=== PATIENT | male | born 1980 | race Two or more races ===

== ENCOUNTER 2019-02-16 21:27 | Emergency (ER) | payer OTHER ==
[~2019-02-16] VITALS: Ht 162.6 cm; Wt 70.3 kg
[~2019-02-16 21:27] MED LIST: IBUPROFEN600 M1 PO; SOMA250 MG PO; XANAX0.5 MG ORAL
[2019-02-16 21:30] VITALS: BP 134/97
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
[2019-02-16] MEDS ORDERED: METHOCARBAMOL750 MG ORAL (21:45)
[2019-02-16] MEDS ORDERED: QUETIAPINE FUMA50 MG ORAL (21:45)
[2019-02-16] MEDS ORDERED: PROPRANOLOL HCL40 MG ORAL (21:45)
[2019-02-16] MEDS ORDERED: Ketorolac 60mg Inj IM ONE (21:45)
[2019-02-16] MEDS ORDERED: PAROXETINE HCL20 MG PO (21:45)
[2019-02-16] MEDS ORDERED: IBUPROFEN600 MG ORAL (22:06)
[2019-02-16 22:10] VITALS: BP 134/97
--- NOTE | 2019-02-16 22:10 | NUR ---
ER DISCHARGE NOTE: Patient is cleared to be discharged per ERMD, pt is aox4, on room air, with stable vital signs. pt was given dc and prescription instructions, pt was able to verbalize understanding, pt id band removed. pt is able to ambulate with steady gait. pt took all belongings.
--- NOTE | 2019-02-16 22:11 | Diagnostic Imaging Report ---
EXAM: XR Right Femur, 2 Views CLINICAL HISTORY: PAIN TECHNIQUE: Frontal and lateral views of the right femur. COMPARISON: No relevant prior studies available. FINDINGS: Bones joints: Unremarkable. No acute fracture. No dislocation. Soft tissues: Unremarkable. IMPRESSION: No definite plain film evidence for acute fracture or dislocation. If there is continued clinical concern for fracture, consider CT or MRI for further evaluation.
== END 2019-02-16 22:10 | disposition home or self-care (01) ==
LOC: EMR 21:39
DX: M79.651 Pain in right thigh (principal); Z88.6 Allergy status to analgesic agent; I10 Essential (primary) hypertension
CPT/HCPCS: 96372; 99283

== ENCOUNTER 2019-03-13 22:35 | Emergency (ER) | payer OTHER ==
[~2019-03-13] VITALS: Ht 162.6 cm; Wt 70.3 kg
[~2019-03-13 22:35] MED LIST changes: +IBUPROFEN600 MG ORAL; +METHOCARBAMOL750 MG ORAL; +PAROXETINE HCL20 MG PO; +PROPRANOLOL HCL40 MG ORAL; +QUETIAPINE FUMA50 MG ORAL
[2019-03-13 23:05] VITALS: BP 135/83
--- NOTE | 2019-03-13 23:05 | NUR ---
ED Nurse Note: Patient walked in to ER due to chest pain, HR 143, throwing up blood. Patient stated he was at dinner and felt sudden onset of chest pain. He has medical history of SVT, GI bleed, Depression, PTSD. As per patient, he had 2 episodes of dark blood emesis today. Alert and oriented, verbally responsive. No SOB. Breathing even and unlabored. Afebrile. VSS.
[2019-03-13] MEDS ORDERED: Pantoprazole Inj IVP ONE (23:15)
[2019-03-13] MEDS ORDERED: Omnipaue 350mg/ml 100ml vial INJ PRN (23:30)
--- NOTE | 2019-03-13 23:32 | Emergency Room Report ---
History of Present Illness General Chief Complaint: Chest Pain Source: Patient Present Illness HPI Disclaimer: Please note that this report is being documented using [employer] technology. This can lead to erroneous entry secondary to incorrect interpretation by the dictating instrument. HPI: 39-year-old male with history of alcohol abuse and SVT presents for evaluation of abdominal pain and hematemesis. Patient states he has had GI bleeds in the past and esophageal varices but no endoscopic procedures of yet. He is scheduled for an outpatient endoscopy. Today he was complaining that he had sudden onset chest pain and proximal me 2 hours prior to arrival and 2 episodes of gross hematemesis. He denies any lower GI bleeding. Denies dysuria hematuria. He has pain across his entire torso and his back. Particularly, he has pain in his epigastrium radiating to the back. Denies loss of consciousness. He is required blood transfusions for bleeding esophageal varices in the past. No history of GA. Not taking anticoagulants. Denies any recent drinking. PMH: SVT, alcohol abuse with esophageal varices and prior GI bleeds PSH: See Chart Allergies: Tylenol-hydrocodone Social Hx: Current smoker, former alcohol abuse Allergies: Coded Allergies: ACETAMINOPHEN (Verified Allergy, Unknown, Rash, 02/16/19) HYDROCODONE (Verified Allergy, Unknown, Rash, 02/16/19) Nursing Documentation-PMH Hx Cardiac Problems: Yes - svt Hx Hypertension: Yes Hx Cancer: No Hx Gastrointestinal Problems: Yes - gi bleed History Of Psychiatric Problem: Yes - depression, ptsd Hx Neurological Problems: No Review of Systems All Other Systems: negative except mentioned in HPI Physical Exam Vital Signs Date Time Temp Pulse Resp B/P (MAP) Pulse Ox O2 Delivery O2 Flow Rate FiO2 03/13/19 22:58 98.2 144 20 135/83 (100) 96 Room Air General: Awake and alert, appears uncomfortable, diaphoretic HEENT: NC/AT. EOMI. dry mucous membranes Neck: Supple, trachea midline Chest Wall: Tender to palpation, no deformity, no crepitus Cardiovascular: Tachycardic. S1 and S2 normal. No murmur appreciated Resp: Mild tachypnea. Normal work of breathing. No cough, no wheezing Abdomen: Abdomen is soft, nondistended. Diffusely tender palpation particularly in the epigastrium. Skin: Intact. No abrasions, laceration MSK: Normal tone and bulk. Moving all extremities. No obvious deformity. Neuro: Awake and alert. Mentating appropriately. Medical Decision Making Diagnostic Impression: Primary Impression: Chest pain Additional Impressions: Hematemesis Pancreatitis ER Course Is a 39-year-old male presenting for evaluation of abdominal pain, chest pain and hematemesis. Differential includes was not limited to aortic dissection, esophageal varices rupture, upper GI bleed, pancreatitis, cholecystitis, GERD, esophageal rupture, esophagitis. We will treat with IV fluids, prepare for blood transfusion if needed, Protonix and broad metabolic and infectious work- up. Will obtain a CT scan of the torso with IV contrast to evaluate for dissection. Patient will require admission. Laboratory Tests Test 03/13/19 23:32 White Blood Count 7.1 K/UL (4.8-10.8) Red Blood Count 5.49 M/UL (4.70-6.10) Hemoglobin 14.1 G/DL (14.2-18.0) L Hematocrit 43.1 % (42.0-52.0) Mean Corpuscular Volume 79 FL (80-99) L Mean Corpuscular Hemoglobin 25.8 PG (27.0-31.0) L Mean Corpuscular Hemoglobin Concent 32.8 G/DL (32.0-36.0) Red Cell Distribution Width 13.9 % (11.6-14.8) Platelet Count 267 K/UL (150-450) Mean Platelet Volume 6.6 FL (6.5-10.1) Neutrophils (%) (Auto) 57.4 % (45.0-75.0) Lymphocytes (%) (Auto) 27.9 % (20.0-45.0) Monocytes (%) (Auto) 8.4 % (1.0-10.0) Eosinophils (%) (Auto) 5.2 % (0.0-3.0) H Basophils (%) (Auto) 1.0 % (0.0-2.0) Prothrombin Time 10.4 SEC (9.30-11.50) Prothrombin Time INR 1.0 (0.9-1.1) PTT 28 SEC (23-33) Sodium Level 141 MMOL/L (136-145) Potassium Level 3.7 MMOL/L (3.5-5.1) Chloride Level 106 MMOL/L (98-107) Carbon Dioxide Level 24 MMOL/L (21-32) Anion Gap 11 mmol/L (5-15) Blood Urea Nitrogen 21 mg/dL (7-18) H Creatinine 0.9 MG/DL (0.55-1.30) Estimate Glomerular Filtration Rate > 60 mL/min (>60) Glucose Level 97 MG/DL (74-106) Calcium Level 8.7 MG/DL (8.5-10.1) Total Bilirubin 0.3 MG/DL (0.2-1.0) Aspartate Amino Transferase (AST) 25 U/L (15-37) Alanine Aminotransferase (ALT) 63 U/L (12-78) Alkaline Phosphatase 89 U/L (46-116) Total Creatine Kinase 110 U/L (26-308) Creatine Kinase MB 1.1 NG/ML (0.0-3.6) Creatine Kinase MB Relative Index 1.0 Troponin I 0.000 ng/mL (0.000-0.056) Pro-B-Type Natriuretic Peptide 19 pg/mL (0-125) Total Protein 7.4 G/DL (6.4-8.2) Albumin 3.9 G/DL (3.4-5.0) Globulin 3.5 g/dL Albumin/Globulin Ratio 1.1 (1.0-2.7) Lipase 517 U/L (73-393) H EKG Diagnostic Results EKG Time: 23:15 Rate: tachycardiac ST Segments: no acute changes Other Impression Tachycardic, normal axis, normal intervals, no ST segment changes. Rhythm Strip Diag. Results Rhythm Strip Time: 23:15 EP Interpretation: yes Rate: 130s Rhythm: NSR, no PVC's, no ectopy Chest X-Ray Diagnostic Results Chest X-Ray Diagnostic Results : Chest X-Ray Ordered: Yes Indication: Chest Pain EP Interpretation: Yes Interpretation: no consolidation, no effusion, no pneumothorax, no acute cardiopulmonary disease, other - Normal cardiac silhouette, no free air appreciated Impression: No acute disease Electronically Signed by: Electronically signed by Dr. Zachariah Giles CT/MRI/US Diagnostic Results CT/MRI/US Diagnostic Results : Impression Preliminary Findings Only See Final Report For Complete Findings CT ABDOMEN With Contrast: No acute abnormality. Status post cholecystectomy. No CT evidence for obstructive uropathy. Small hiatal hernia. Normal appendix visualized Nonspecific bowel gas pattern with mild to moderate retained stool. Small periumbilical hernia containing fat. Radiologist: Hanh Ruiz M.D. Study ready at 04:03 and initial results transmitted at 05:05 Numbers: [id number], [id number] Preliminary Findings Only See Final Report For Complete Findings CTA CHEST With Contrast: Negative for pulmonary embolism. No evidence for aortic dissection. No pericardial or pleural effusion. No lymphadenopathy. Bibasilar atelectasis. Status post cholecystectomy. Small hiatal hernia. Radiologist: Hanh Ruiz M.D. Study ready at 02:06 and initial results transmitted at 02:19 Reevaluation Time: 02:34 Last Vital Signs Date Time Temp Pulse Resp B/P (MAP) Pulse Ox O2 Delivery O2 Flow Rate FiO2 03/13/19 22:58 98.2 144 20 135/83 (100) 96 Room Air Reevaluation Impression Lab work shows an elevated lipase consistent with pancreatitis but otherwise largely within normal limits. CT scan does not show any evidence of necrotizing pancreatitis or significant peripancreatic fat stranding. No evidence of aortic dissection, abdominal aortic aneurysm, thoracic aortic aneurysm or other pathology. Patient's symptoms are now resolved. He has had no emesis while in the emergency department, no evidence of anemia and he is not actively bleeding. Will be treated with simple pancreatitis and is received IV fluids and pain medication. He will be discharged with Zofran and outpatient follow-up. We discussed reasons to return to the emergency department. He understands and agrees with this treatment plan. Disposition: HOME, SELF-CARE Condition: Improved Scripts Ondansetron Odt* (ZOFRAN ODT*) 4 Mg Tab.rapdis 4 MG BC EVERY 6 HOURS PRN for Nausea & Vomiting, #20 TAB 0 Refills Prov: Zachariah Giles MD 03/14/19 Referrals: NOT CHOSEN [facility]/,REFERRING (PCP) Zachariah Giles MD Mar 13, 2019 23:32
[2019-03-14 00:03] LABS: EOSINOPHILS % (AUTO) 5.2 % (0.0-3.0); HEMATOCRIT 43.1 % (42.0-52.0); HEMOGLOBIN 14.1 G/DL (14.2-18.0); LYMPHOCYTES % (AUTO) 27.9 % (20.0-45.0); MEAN CORPUSCULAR VOLUME 79 FL (80-99); MONOCYTES % (AUTO) 8.4 % (1.0-10.0); NEUTROPHILS % (AUTO) 57.4 % (45.0-75.0); PLATELET COUNT 267 K/UL (150-450); RED BLOOD COUNT 5.49 M/UL (4.70-6.10); RED CELL DISTRIBUTION WIDTH 13.9 % (11.6-14.8); WHITE BLOOD COUNT 7.1 K/UL (4.8-10.8)
[2019-03-14 00:21] VITALS: BP 98/70
[2019-03-14 00:21] LABS: ANION GAP 11 mmol/L (5-15); BLOOD UREA NITROGEN 21 mg/dL (7-18); CALCIUM 8.7 MG/DL (8.5-10.1); CARBON DIOXIDE 24 MMOL/L (21-32); CHLORIDE 106 MMOL/L (98-107); CREATININE 0.9 MG/DL (0.55-1.30); POTASSIUM 3.7 MMOL/L (3.5-5.1); SODIUM 141 MMOL/L (136-145)
[2019-03-14 00:38] LABS: ALANINE AMINOTRANSFERASE 63 U/L (12-78); ALBUMIN 3.9 G/DL (3.4-5.0); ALBUMIN/GLOBULIN RATIO 1.1 (1.0-2.7); ALKALINE PHOSPHATASE 89 U/L (46-116); ASPARTATE AMINO TRANSFERASE 25 U/L (15-37); BILIRUBIN,TOTAL 0.3 MG/DL (0.2-1.0); CKMB 1.1 NG/ML (0.0-3.6); CREATINE KINASE 110 U/L (26-308)
--- NOTE | 2019-03-14 01:25 | NUR ---
ED Nurse Note: Pt taken for CT.
--- NOTE | 2019-03-14 01:48 | NUR ---
ED Nurse Note: Came back from CT.
--- NOTE | 2019-03-14 02:19 | Diagnostic Imaging Report ---
ndication: Chest pain, history of hematemesis Technique: IV administration nonionic contrast. Spiral acquisitions obtained from the lung bases to the lung apices. Multiplanar and 3-D reconstructions were generated. Total dose length product 697 mGycm. CTDIvol(s) 17 mGy. Dose reduction achieved using automated exposure control Comparison: none Findings: Pulmonary arteries and aorta are well-opacified. No intraluminal filling defects or other findings to suggest acute pulmonary embolus are demonstrated. No evidence of thoracic aortic aneurysm or dissection. Normal sized pulmonary arteries. Normal right ventricular chamber size. There is common origin of the right brachiocephalic and left common carotid artery, otherwise normal branching anatomy and caliber of the great neck vessels. Subpleural opacities in the right lower lobe likely reflect dependent atelectatic changes. Minimal linear atelectasis and/or scarring is seen at the left lung base and left infrahilar region. The lungs are otherwise clear. No infiltrates, effusions, masses, or nodules are demonstrated. Normal heart size. No mediastinal or hilar mass or adenopathy. No pericardial effusion. No axillary or chest wall mass or adenopathy. Included upper abdominal anatomy is unremarkable except for evidence of prior cholecystectomy Impression: Essentially unremarkable exam. Negative for evidence of thoracic aortic aneurysm or dissection or pulmonary embolus Minimal pulmonary atelectatic changes Prior cholecystectomy This agrees with the preliminary interpretation provided overnight by [employer] teleradiology service. The CT scanner at [facility] is accredited by the [employer] and the scans are performed using protocols designed to limit radiation exposure to as low as reasonably achievable to attain images of sufficient resolution adequate for diagnostic evaluation.
[2019-03-14 02:48] VITALS: BP 103/60
[2019-03-14] MEDS ORDERED: Omnipaque-300 100ml vial INJ PRN (03:30)
[2019-03-14] MEDS ORDERED: ONDANSETRON ODT4 MG BC (04:25)
--- NOTE | 2019-03-14 05:06 | Diagnostic Imaging Report ---
Clinical Indication: Abdominal pain Technique: No oral contrast utilized, per emergency room physician request IV administration nonionic contrast. Multiphasic spiral acquisitions obtained through the abdomen. Multiplanar reconstructions were generated. Total dose length product 542 mGycm. CTDIvol(s) 15 mGy. Dose reduction achieved using automated exposure control Comparison: none Findings: Exam is limited as the top of the liver is not included in the imaging volume. The visualized portions of the liver are unremarkable. The gallbladder is surgically absent. No biliary ductal dilatation noted. The pancreas, spleen, adrenals, kidneys are unremarkable. Contrast is seen within the bilateral renal collecting systems and proximal ureters. The top of the bladder, which is distended and contrast-filled, is also visualized. No retroperitoneal or mesenteric lymphadenopathy demonstrated. There is a small fat-containing umbilical hernia incidentally noted. There is a small hiatal hernia The appendix is visualized, is unremarkable. The remainder the visualized bowel is unremarkable. The distal esophagus, stomach, duodenum are unremarkable. Impression: Incomplete exam due to incomplete inclusion of the upper liver No acute abnormality Prior cholecystectomy Incidental finding of small fat-containing abdominal hernia, small hiatal hernia This agrees with the preliminary interpretation provided overnight by [employer] telerad[facility] service. The CT scanner at [facility] is accredited by the [employer] and the scans are performed using protocols designed to limit radiation exposure to as low as reasonably achievable to attain images of sufficient resolution adequate for diagnostic evaluation.
[2019-03-14 05:10] VITALS: BP 110/78
--- NOTE | 2019-03-14 05:10 | NUR ---
ED Nurse Note: Pt cleared by ERMD for discharge. DC instructions/prescription was given and explained to pt and verbalized understanding of teachings. All medical deviecs such as ID band and Iv line removed. Pt is AAO x4, ambulatory and left with all personal belongings. Accompanied by a friend.
--- NOTE | 2019-03-14 15:05 | Diagnostic Imaging Report ---
Indication: Chest pain Technique: One view of the chest Comparison: none Findings: Lungs and pleural spaces are clear. Heart size is upper limits of normal. Impression: No acute process
[2019-03-14] MEDS ORDERED: CARISOPRODOL350 MG ORAL (20:16)
[2019-03-14] MEDS ORDERED: ALPRAZOLAM0.5 MG PO (20:16)
--- NOTE | 2019-03-17 00:19 | Cardiology Report ---
APPROVED REPORT EKG Measurement Heart [id number] Sinus tachycardia Otherwise normal ECG
== END 2019-03-14 05:10 | disposition home or self-care (01) ==
LOC: EMR 23:15
DX: K85.90 Acute pancreatitis without necrosis or infection, unspecified (principal); K92.0 Hematemesis; R07.9 Chest pain, unspecified; I10 Essential (primary) hypertension; F32.9 Major depressive disorder, single episode, unspecified; F43.10 Post-traumatic stress disorder, unspecified; Z88.6 Allergy status to analgesic agent; F17.200 Nicotine dependence, unspecified, uncomplicated; Z90.49 Acquired absence of other specified parts of digestive tract
CPT/HCPCS: 36415; 71045; 71275; 74160; 80053; 82550; 82553; 83690; 83880; 84484; 85025; 85610; 85730; 86850; 86900; 86901; 93005; 96361; 96374; 99284; C9113; Q9967; J7030

== ENCOUNTER 2019-03-14 13:54 | Inpatient (IN) | payer OTHER ==
[~2019-03-14] VITALS: Ht 162.6 cm; Wt 76.7 kg
[~2019-03-14 13:54] MED LIST changes: +ONDANSETRON ODT4 MG BC
[2019-03-14 14:30] VITALS: BP 136/90
[2019-03-14] MEDS ORDERED: Morphine Sulfate 10mg/ml Inj IVP ONE (14:30)
[2019-03-14] MEDS ORDERED: Ketorolac 30mg Inj IV ONE (14:30)
--- NOTE | 2019-03-14 14:30 | NUR ---
Patient was in ED yesterday for pancreatitis, returned today since he was advised to return if symptoms worsens. Patient complaining of 10/10 abdominal pain. Has not eaten since yesterday morning and last time he had fluids was this morning. He is unable to eat or drink without vomiting. Per pt, he vomited a medium amount blood earlier today. Patient visually distressed, guarding abdomen and grimacing. BP 136/90, Temp 98.2, O2 99%, RR 17.
--- NOTE | 2019-03-14 14:35 | Emergency Room Report ---
History of Present Illness General Chief Complaint: Abdominal Pain Source: Patient Present Illness HPI This patient has a history of recurrent pancreatitis. He states that he develops intermittent episodes. He states that he has not drank alcohol in 4 months. He is in a rehab program. He was seen last night here at [facility] emergency department and diagnosed with pancreatitis. He states that his symptoms have worsened and he continues to have hematemesis. He does have a history of a GI bleed that he states was related to gastritis. The medical record states history of esophageal varices, however, when I inquired into this from with the patient he denies that he does have this. He is scheduled for an upper endoscopy. He denies recent illness. He has a history of cholecystectomy. He denies any new symptoms. He has no other complaints. Allergies: Coded Allergies: ACETAMINOPHEN (Verified Allergy, Unknown, Rash, 02/16/19) HYDROCODONE (Verified Allergy, Unknown, Rash, 02/16/19) Patient History Past Medical History: see triage record, HTN, GERD, GI bleed, other - SVT, recurrent pancreatitis Social History: Denies: smoking, alcohol use, drug use Reviewed Nursing Documentation: PMH: Agreed; PSxH: Agreed Nursing Documentation-PMH Past Medical History: No History, Except For Hx Cardiac Problems: Yes - svt Hx Hypertension: Yes Hx Cancer: No Hx Gastrointestinal Problems: Yes - gi bleed Hx Neurological Problems: No Review of Systems All Other Systems: negative except mentioned in HPI Physical Exam Vital Signs Date Time Temp Pulse Resp B/P (MAP) Pulse Ox O2 Delivery O2 Flow Rate FiO2 03/14/19 14:08 98.1 111 18 129/77 (94) 95 Room Air Sp02 EP Interpretation: reviewed, normal General Appearance: no apparent distress, alert, GCS 15, non-toxic Head: normocephalic, atraumatic Eyes: bilateral eye normal inspection, bilateral eye PERRL ENT: hearing grossly normal, normal pharynx, no angioedema, normal voice Neck: full range of motion, supple/symm/no masses Respiratory: chest non-tender, lungs clear, normal breath sounds, no respiratory distress, no retraction, no accessory muscle use, speaking full sentences Cardiovascular #1: regular rate, rhythm, no edema Gastrointestinal: soft, non-distended, no guarding, no rebound, tenderness - TTP in the epigastrium Rectal: deferred Musculoskeletal: back normal, gait/station normal, normal range of motion, non- tender Neurologic: alert, oriented x3, responsive, motor strength/tone normal, sensory intact, speech normal Psychiatric: judgement/insight normal, memory normal, mood/affect normal, no suicidal/homicidal ideation Skin: no rash, normal color Medical Decision Making Diagnostic Impression: Primary Impression: Pancreatitis ER Course This patient is found to have pancreatitis. Patient's lipase is the same as yesterday. He states he is unable to tolerate the pain anything orally. Therefore, the patient will be admitted for bowel rest and pain control. He remained stable during his ED course. He is admitted to the medical surgical floor. Laboratory Tests Test 03/14/19 14:50 White Blood Count 5.4 K/UL (4.8-10.8) Red Blood Count 5.25 M/UL (4.70-6.10) Hemoglobin 13.9 G/DL (14.2-18.0) L Hematocrit 41.4 % (42.0-52.0) L Mean Corpuscular Volume 79 FL (80-99) L Mean Corpuscular Hemoglobin 26.5 PG (27.0-31.0) L Mean Corpuscular Hemoglobin Concent 33.6 G/DL (32.0-36.0) Red Cell Distribution Width 13.6 % (11.6-14.8) Platelet Count 254 K/UL (150-450) Mean Platelet Volume 7.2 FL (6.5-10.1) Neutrophils (%) (Auto) 60.7 % (45.0-75.0) Lymphocytes (%) (Auto) 23.6 % (20.0-45.0) Monocytes (%) (Auto) 7.7 % (1.0-10.0) Eosinophils (%) (Auto) 7.0 % (0.0-3.0) H Basophils (%) (Auto) 1.0 % (0.0-2.0) Urine Color Pale yellow Urine Appearance Clear Urine pH 5 (4.5-8.0) Urine Specific [place] 1.010 (1.005-1.035) Urine Protein Negative (NEGATIVE) Urine Glucose (UA) Negative (NEGATIVE) Urine Ketones Negative (NEGATIVE) Urine Blood Negative (NEGATIVE) Urine Nitrite Negative (NEGATIVE) Urine Bilirubin Negative (NEGATIVE) Urine Urobilinogen Normal MG/DL (0.0-1.0) Urine Leukocyte Esterase Negative (NEGATIVE) Sodium Level 141 MMOL/L (136-145) Potassium Level 3.7 MMOL/L (3.5-5.1) Chloride Level 108 MMOL/L (98-107) H Carbon Dioxide Level 22 MMOL/L (21-32) Anion Gap 11 mmol/L (5-15) Blood Urea Nitrogen 11 mg/dL (7-18) Creatinine 0.7 MG/DL (0.55-1.30) Estimate Glomerular Filtration Rate > 60 mL/min (>60) Glucose Level 108 MG/DL (74-106) H Calcium Level 8.4 MG/DL (8.5-10.1) L Total Bilirubin 0.3 MG/DL (0.2-1.0) Aspartate Amino Transferase (AST) 20 U/L (15-37) Alanine Aminotransferase (ALT) 59 U/L (12-78) Alkaline Phosphatase 97 U/L (46-116) Total Protein 7.1 G/DL (6.4-8.2) Albumin 3.8 G/DL (3.4-5.0) Globulin 3.3 g/dL Albumin/Globulin Ratio 1.2 (1.0-2.7) Lipase 532 U/L (73-393) H Urine Opiates Screen Negative (NEGATIVE) Urine Barbiturates Screen Negative (NEGATIVE) Phencyclidine (PCP) Screen Negative (NEGATIVE) Urine Amphetamines Screen Negative (NEGATIVE) Urine Benzodiazepines Screen Negative (NEGATIVE) Urine Cocaine Screen Negative (NEGATIVE) Urine Marijuana (THC) Screen Negative (NEGATIVE) Serum Alcohol < 3 mg/dL Last Vital Signs Date Time Temp Pulse Resp B/P (MAP) Pulse Ox O2 Delivery O2 Flow Rate FiO2 03/14/19 14:08 98.1 111 18 129/77 (94) 95 Room Air Status: improved Disposition: ADMITTED INPATIENT Condition: Stable Martha Schwarz DO Mar 14, 2019 14:35
[2019-03-14 15:12] LABS: HEMATOCRIT 41.4 % (42.0-52.0); HEMOGLOBIN 13.9 G/DL (14.2-18.0); LYMPHOCYTES % (AUTO) 23.6 % (20.0-45.0); MEAN CORPUSCULAR VOLUME 79 FL (80-99); MONOCYTES % (AUTO) 7.7 % (1.0-10.0); NEUTROPHILS % (AUTO) 60.7 % (45.0-75.0); PLATELET COUNT 254 K/UL (150-450); RED BLOOD COUNT 5.25 M/UL (4.70-6.10); RED CELL DISTRIBUTION WIDTH 13.6 % (11.6-14.8); WHITE BLOOD COUNT 5.4 K/UL (4.8-10.8)
[2019-03-14 15:13] LABS: APPEARANCE,URINE CLEAR; BILIRUBIN, URINE NEGATIVE (NEGATIVE); COLOR,URINE PALE YELLOW; GLUCOSE, URINE (UA) NEGATIVE (NEGATIVE); KETONES,URINE NEGATIVE (NEGATIVE); LEUKOCYTE ESTERASE ,URINE NEGATIVE (NEGATIVE); NITRITE,URINE NEGATIVE (NEGATIVE); PH,URINE 5 (4.5-8.0); PROTEIN,URINE NEGATIVE (NEGATIVE); UROBILINOGEN,URINE NORMAL MG/DL (0.0-1.0)
[2019-03-14 15:38] LABS: ANION GAP 11 mmol/L (5-15); BLOOD UREA NITROGEN 11 mg/dL (7-18); CALCIUM 8.4 MG/DL (8.5-10.1); CARBON DIOXIDE 22 MMOL/L (21-32); CHLORIDE 108 MMOL/L (98-107); CREATININE 0.7 MG/DL (0.55-1.30); POTASSIUM 3.7 MMOL/L (3.5-5.1); SODIUM 141 MMOL/L (136-145)
[2019-03-14 15:41] LABS: ALANINE AMINOTRANSFERASE 59 U/L (12-78); ALBUMIN 3.8 G/DL (3.4-5.0); ALBUMIN/GLOBULIN RATIO 1.2 (1.0-2.7); ALKALINE PHOSPHATASE 97 U/L (46-116); ASPARTATE AMINO TRANSFERASE 20 U/L (15-37); BILIRUBIN,TOTAL 0.3 MG/DL (0.2-1.0)
--- NOTE | 2019-03-14 16:29 | NUR ---
ED Nurse Note: Per MD, patient ok to have clear liquids to see if he tolerates.
--- NOTE | 2019-03-14 17:00 | NUR ---
ED Nurse Note: pt attempting po clear liquids in small amounts. states no increased pain or nausea with small amt
[2019-03-14] MEDS ORDERED: HYDROmorphone 1mg/ml Carpuject IVP ONE (17:30)
[2019-03-14 18:50] VITALS: BP 125/84
--- NOTE | 2019-03-14 18:50 | NUR ---
ED Nurse Note: Patient stable in bed. Pain is 7/10 after receiving dilaudid IV.
--- NOTE | 2019-03-14 19:08 | NUR ---
HAND-OFF: Report given to Isaac MEYERS.
[2019-03-14] MEDS ORDERED: Miralax 17gm pkt ORAL PRN (19:30)
[2019-03-14] MEDS ORDERED: Nitroglycerin Subl 0.4mg tab SL PRN (19:30)
[2019-03-14] MEDS ORDERED: Metoclopramide 10mg/2ml Inj IVP PRN (19:30)
[2019-03-14 20:00] VITALS: BP 140/91
--- NOTE | 2019-03-14 20:00 | NUR ---
NURSE NOTES: RECEIVED PATIENT FROM ER. BELONGINGS CHECKED WITH ER NURSE. PATIENT ALERT AND ORIENTED X4, C/O ABDOMINAL PAIN 02/05. MADE PATIENT COMFORTABLE IN BED. FALL PRECAUTIONS IN PLACE: CALL LIGHT, BEDSIDE TABLE AND URINAL WITHIN REACH, BED IN LOW POSITION. ADMISSION ORDERS PLACED BY DR. HERNANDEZ.
[2019-03-14] MEDS ORDERED: ALPRAZOLAM0.5 MG PO (20:16)
[2019-03-14] MEDS ORDERED: CARISOPRODOL350 MG ORAL (20:16)
[2019-03-14] MEDS: D5 1/2NS 1,000 ML IV SCH (20:54)
[2019-03-14] MEDS: Heparin 5000 units/ml inj SUBQ SCH (21:00)
[2019-03-14] MEDS: LORazepam Inj 2mg/ml 1ml IV PRN (21:14)
[2019-03-14] MEDS ORDERED: Ketorolac 30mg Inj IV PRN (21:45)
[2019-03-14] MEDS: HYDROmorphone 1mg/ml Carpuject IVP PRN (22:18)
[2019-03-15] VITALS (7 sets, daily range): BP systolic 122–143; BP diastolic 79–99
[2019-03-15] MEDS: HYDROmorphone 1mg/ml Carpuject IVP PRN ×4 (01:26→11:14)
[2019-03-15] MEDS: LORazepam Inj 2mg/ml 1ml IV PRN ×2 (03:34→08:59)
[2019-03-15 05:53] LABS: ALANINE AMINOTRANSFERASE 57 U/L (12-78); ALBUMIN 3.7 G/DL (3.4-5.0); ALBUMIN/GLOBULIN RATIO 1.2 (1.0-2.7); ALKALINE PHOSPHATASE 83 U/L (46-116); AMYLASE 60 U/L (25-115); ANION GAP 6 mmol/L (5-15); ASPARTATE AMINO TRANSFERASE 25 U/L (15-37); BILIRUBIN,TOTAL 0.4 MG/DL (0.2-1.0); BLOOD UREA NITROGEN 6 mg/dL (7-18); CALCIUM 8.3 MG/DL (8.5-10.1); CARBON DIOXIDE 28 MMOL/L (21-32); CHLORIDE 106 MMOL/L (98-107); CREATININE 0.7 MG/DL (0.55-1.30); POTASSIUM 3.5 MMOL/L (3.5-5.1); SODIUM 140 MMOL/L (136-145)
[2019-03-15 06:04] LABS: EOSINOPHILS % (AUTO) 6.1 % (0.0-3.0); HEMATOCRIT 40.9 % (42.0-52.0); HEMOGLOBIN 13.4 G/DL (14.2-18.0); MEAN CORPUSCULAR VOLUME 79 FL (80-99); MONOCYTES % (AUTO) 9.3 % (1.0-10.0); NEUTROPHILS % (AUTO) 55.6 % (45.0-75.0); PLATELET COUNT 237 K/UL (150-450); RED BLOOD COUNT 5.19 M/UL (4.70-6.10); RED CELL DISTRIBUTION WIDTH 13.4 % (11.6-14.8); WHITE BLOOD COUNT 6.1 K/UL (4.8-10.8)
--- NOTE | 2019-03-15 07:10 | NUR ---
nurse notes received patient in bed, no sign of distress, on RA, denies pain at this time, patient stated he wants to get his pain meds on time, instructed patient call me once he is in pain , dilaudid is Q3H PRN, IVF patent and infusing well, on NPO status, plan of care was discussed needs reinforcement, call light w/n easy reach radha rios
--- NOTE | 2019-03-15 07:39 | NUR ---
HAND-OFF: Report given to LUIGI JENKINS. PATIENT RESTING IN BED, NO SIGNS OF DISTRESS NOTED.
[2019-03-15] MEDS: Heparin 5000 units/ml inj SUBQ SCH ×2 (08:17→20:15)
[2019-03-15] MEDS: D5 1/2NS 1,000 ML IV SCH (08:21)
[2019-03-15] MEDS ORDERED: PARoxetine 20mg tab ORAL SCH (09:00)
[2019-03-15] MEDS ORDERED: Pantoprazole Inj IV SCH (09:00)
--- NOTE | 2019-03-15 10:34 | Diagnostic Imaging Report ---
Indication: Abdominal pain Technique: Multiplanar grayscale and duplex Doppler imaging of the abdomen Comparison: No prior abdominal ultrasound available for comparison. Correlation made to CT abdomen pelvis 03/14/2019 Findings: Pancreas is obscured by overlying bowel gas and not evaluated. Liver is normal in size. Echogenicity is within normal limits. Hepatic contour appears smooth. Main portal vein is patent with normal direction of flow. Patient is status post cholecystectomy. No intrahepatic biliary ductal dilatation identified. The CBD measures 7-8 mm in diameter. No choledocholithiasis identified sonographically. Kidneys are symmetric in size and demonstrate normal echogenicity. There is no hydronephrosis or sonographically appreciable renal stone bilaterally. Color flow to the bilateral kidneys within normal limits. Spleen normal in size. Imaged portions of the abdominal aorta and inferior vena cava are normal in caliber. Please note that distal abdominal aorta not well evaluated due to overlying bowel gas. No ascites demonstrated. IMPRESSION: Limited exam due to overlying bowel gas. Pancreas and portions of the distal aorta is obscured and not evaluated. Status post cholecystectomy. Mild prominence of the common bile duct measuring between 7 to 8 mm favored to be related to postcholecystectomy state. Correlation with LFTs recommended. No discrete choledocholithiasis identified. No intrahepatic biliary ductal dilatation seen.
[2019-03-15] MEDS ORDERED: chlordiazePOXIDE 25mg Cap ORAL PRN (12:15)
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
[2019-03-15] MEDS ORDERED: LORazepam Inj 2mg/ml 1ml IV PRN (12:30)
--- NOTE | 2019-03-15 13:12 | GI Initial Consult Note ---
History of Present Illness General Date patient seen: Mar 15, 2019 Time patient seen: 13:06 Reason for Hospitalization: Abdominal Pain Referring physician: SHARLA DURAN Reason for Consultation: PANCREATITIS Present Illness HPI This patient has a history of recurrent pancreatitis. He states that he develops intermittent episodes. He states that he has not drank alcohol in 4 months. He is in a rehab program. He was seen last night here at [facility] emergency department and diagnosed with pancreatitis. He states that his symptoms have worsened and he continues to have hematemesis. He does have a history of a GI bleed that he states was related to gastritis. The medical record states history of esophageal varices, however, when I inquired into this from with the patient he denies that he does have this. He is scheduled for an upper endoscopy. He denies recent illness. He has a history of cholecystectomy. He denies any new symptoms. He has no other complaints. GI consulted for pancreatitis and reported GI bleed. Patient seen, awake alert oriented x4 appears to be anxious. According to the patient, she had multiple episodes of emesis in which she described as dark gastric contents he believed which was blood. Patient does state he has a history of GI bleed, states he had an history of upper endoscopy a few years ago but unable to recall of any findings. At the time of evaluation, no reported hematemesis or coffee grounds. The patient presents today with hemoglobin of 13.4, hematocrit 40.9, initial lipase of 532 which is resolved to 165, no transaminitis. Abdominal ultrasound noted the liver was normal in echogenicity with no cirrhosis noted. The patient denies any use of tobacco, alcohol, drugs. Home Meds Active Scripts Ondansetron Odt* (ZOFRAN ODT*) 4 Mg Tab.rapdis, 4 MG BC EVERY 6 HOURS PRN for Nausea & Vomiting, #20 TAB 0 Refills Prov:Zachariah Giles MD 03/14/19 Ibuprofen* (MOTRIN*) 600 Mg Tablet, 600 MG ORAL THREE TIMES A DAY, #30 TAB 0 Refills Prov:Jaison Puga MD 02/16/19 Reported Medications Alprazolam* (XANAX*) 0.5 Mg Tablet, 2 MG PO TID, TAB 03/14/19 Carisoprodol* (CARISOPRODOL*) 350 Mg Tablet, 350 MG ORAL THREE TIMES A DAY, TAB 03/14/19 Methocarbamol* (METHOCARBAMOL*) 750 Mg Tablet, 750 MG ORAL FOUR TIMES A DAY PRN for For Pain, #20 TAB 0 Refills 02/16/19 Paroxetine Hcl* (PAXIL*) 20 Mg Tablet, 40 MG PO DAILY, TAB 02/16/19 Quetiapine Fumarate* (QUETIAPINE FUMARATE*) 50 Mg Tablet, 50 MG ORAL DAILY, TAB 02/16/19 Propranolol Hcl* (INDERAL*) 40 Mg Tablet, 40 MG ORAL THREE TIMES A DAY, #90 TAB 0 Refills 02/16/19 Med list reviewed/reconciled: Yes Allergies: Coded Allergies: ACETAMINOPHEN (Verified Allergy, Unknown, Rash, 02/16/19) HYDROCODONE (Verified Allergy, Unknown, Rash, 02/16/19) Patient History History Provided By: Patient, Medical Record PMH Narrative Past Medical History: see triage record, HTN, GERD, GI bleed, other - SVT, recurrent pancreatitis Social History: Denies: smoking, alcohol use, drug use Reviewed Nursing Documentation: PMH: Agreed; PSxH: Agreed Nursing Documentation-PMH Past Medical History: No History, Except For Hx Cardiac Problems: Yes - svt Hx Hypertension: Yes Hx Cancer: No Hx Gastrointestinal Problems: Yes - gi bleed Hx Neurological Problems: No Social History: Denies: smoking, alcohol use, drug use, other Review of Systems Gastrointestinal: Reports: other - Patient has complaint of generalized abdominal pain, more localized to the left upper quadrant All Other Systems: negative except mentioned in HPI Physical Exam Vital Signs Date Time Temp Pulse Resp B/P (MAP) Pulse Ox O2 Delivery O2 Flow Rate FiO2 03/14/19 14:08 98.1 111 18 129/77 (94) 95 Room Air Sp02 EP Interpretation: reviewed, normal Labs Laboratory Tests Test 03/14/19 14:50 03/15/19 05:10 White Blood Count 5.4 K/UL (4.8-10.8) 6.1 K/UL (4.8-10.8) Red Blood Count 5.25 M/UL (4.70-6.10) 5.19 M/UL (4.70-6.10) Hemoglobin 13.9 G/DL (14.2-18.0) L 13.4 G/DL (14.2-18.0) L Hematocrit 41.4 % (42.0-52.0) L 40.9 % (42.0-52.0) L Mean Corpuscular Volume 79 FL (80-99) L 79 FL (80-99) L Mean Corpuscular Hemoglobin 26.5 PG (27.0-31.0) L 25.7 PG (27.0-31.0) L Mean Corpuscular Hemoglobin Concent 33.6 G/DL (32.0-36.0) 32.6 G/DL (32.0-36.0) Red Cell Distribution Width 13.6 % (11.6-14.8) 13.4 % (11.6-14.8) Platelet Count 254 K/UL (150-450) 237 K/UL (150-450) Mean Platelet Volume 7.2 FL (6.5-10.1) 6.6 FL (6.5-10.1) Neutrophils (%) (Auto) 60.7 % (45.0-75.0) 55.6 % (45.0-75.0) Lymphocytes (%) (Auto) 23.6 % (20.0-45.0) 28.0 % (20.0-45.0) Monocytes (%) (Auto) 7.7 % (1.0-10.0) 9.3 % (1.0-10.0) Eosinophils (%) (Auto) 7.0 % (0.0-3.0) H 6.1 % (0.0-3.0) H Basophils (%) (Auto) 1.0 % (0.0-2.0) 1.0 % (0.0-2.0) Urine Color Pale yellow Urine Appearance Clear Urine pH 5 (4.5-8.0) Urine Specific [place] 1.010 (1.005-1.035) Urine Protein Negative (NEGATIVE) Urine Glucose (UA) Negative (NEGATIVE) Urine Ketones Negative (NEGATIVE) Urine Blood Negative (NEGATIVE) Urine Nitrite Negative (NEGATIVE) Urine Bilirubin Negative (NEGATIVE) Urine Urobilinogen Normal MG/DL (0.0-1.0) Urine Leukocyte Esterase Negative (NEGATIVE) Sodium Level 141 MMOL/L (136-145) 140 MMOL/L (136-145) Potassium Level 3.7 MMOL/L (3.5-5.1) 3.5 MMOL/L (3.5-5.1) Chloride Level 108 MMOL/L (98-107) H 106 MMOL/L (98-107) Carbon Dioxide Level 22 MMOL/L (21-32) 28 MMOL/L (21-32) Anion Gap 11 mmol/L (5-15) 6 mmol/L (5-15) Blood Urea Nitrogen 11 mg/dL (7-18) 6 mg/dL (7-18) L Creatinine 0.7 MG/DL (0.55-1.30) 0.7 MG/DL (0.55-1.30) Estimat Glomerular Filtration Rate > 60 mL/min (>60) > 60 mL/min (>60) Glucose Level 108 MG/DL (74-106) H 90 MG/DL (74-106) Calcium Level 8.4 MG/DL (8.5-10.1) L 8.3 MG/DL (8.5-10.1) L Total Bilirubin 0.3 MG/DL (0.2-1.0) 0.4 MG/DL (0.2-1.0) Aspartate Amino Transf (AST/SGOT) 20 U/L (15-37) 25 U/L (15-37) Alanine Aminotransferase (ALT/SGPT) 59 U/L (12-78) 57 U/L (12-78) Alkaline Phosphatase 97 U/L (46-116) 83 U/L (46-116) Total Protein 7.1 G/DL (6.4-8.2) 6.8 G/DL (6.4-8.2) Albumin 3.8 G/DL (3.4-5.0) 3.7 G/DL (3.4-5.0) Globulin 3.3 g/dL 3.1 g/dL Albumin/Globulin Ratio 1.2 (1.0-2.7) 1.2 (1.0-2.7) Lipase 532 U/L (73-393) H 165 U/L (73-393) Urine Opiates Screen Negative (NEGATIVE) Urine Barbiturates Screen Negative (NEGATIVE) Phencyclidine (PCP) Screen Negative (NEGATIVE) Urine Amphetamines Screen Negative (NEGATIVE) Urine Benzodiazepines Screen Negative (NEGATIVE) Urine Cocaine Screen Negative (NEGATIVE) Urine Marijuana (THC) Screen Negative (NEGATIVE) Serum Alcohol < 3 mg/dL Activated Partial Thromboplast Time 29 SEC (23-33) Amylase Level 60 U/L (25-115) General Appearance: well appearing, no apparent distress, alert Head: normocephalic EENT: PERRL/EOMI, normal ENT inspection Neck: supple Respiratory: normal breath sounds, no respiratory distress Cardiovascular: normal rate Gastrointestinal: normal inspection, non tender, soft, normal bowel sounds, non -distended Rectal: deferred Genitourinary: deferred Musculoskeletal: normal inspection, back normal Neurologic: normal inspection, alert, oriented x3, responsive Psychiatric: normal inspection, judgement/insight normal, memory normal Skin: normal inspection, normal color, no rash, warm/dry, palpation normal, well hydrated Lymphatic: normal inspection, no adenopathy Current Medications Current Medications Medications (Trade) Dose Ordered Sig/Char Route PRN Reason Start Time Stop Time Status Last Admin Dose Admin Chlordiazepoxide (Librium) 25 mg Q6H PRN ORAL Agitation 03/15/19 12:15 03/22/19 12:14 Dextrose (Dextrose 50%) 25 ml Q30M PRN IV Hypoglycemia 03/14/19 19:30 04/13/19 19:29 Dextrose (Dextrose 50%) 50 ml Q30M PRN IV Hypoglycemia 03/14/19 19:30 04/13/19 19:29 Diphenhydramine HCl (Benadryl) 25 mg Q6H PRN ORAL Itching/Pruritis 03/14/19 19:30 04/13/19 19:29 Folic Acid 1 mg/ Magnesium Sulfate 2000 mg/ Multivitamins 10 ml/Sodium Chloride 1,014.2 ml @ 125 mls/ hr Q24H IV 03/15/19 14:00 04/14/19 13:59 Heparin Sodium (Porcine) (Heparin 5000 units/ml) 5,000 units EVERY 12 HOURS SUBQ 03/14/19 21:00 04/13/19 20:59 03/15/19 08:17 Hydromorphone HCl (Dilaudid) 2 mg Q3H PRN IVP Severe Pain (Pain Scale 7-10) 03/15/19 12:15 03/22/19 12:14 Lorazepam (Ativan 2mg/ml 1ml) 1 mg EVERY 4 HOURS PRN IV breakthrough agitation 03/15/19 12:30 10/24/19 19:29 Metoclopramide HCl (Reglan) 10 mg EVERY 6 HOURS PRN IVP servere nauasea 03/14/19 19:30 04/13/19 19:29 03/15/19 11:10 Nitroglycerin (Ntg) 0.4 mg Q5M X 3 DOSES PRN SL Prn Chest Pain 03/14/19 19:30 04/13/19 19:29 Ondansetron HCl (Zofran) 4 mg Q6H PRN IVP Nausea & Vomiting 03/14/19 19:30 04/13/19 19:29 Pantoprazole (Protonix) 40 mg DAILY IV 03/15/19 09:00 04/14/19 08:59 03/15/19 08:16 Paroxetine HCl (Paxil) 40 mg DAILY ORAL 03/15/19 09:00 04/14/19 08:59 03/15/19 08:24 Promethazine HCl (Phenergan) 25 mg Q6H PRN IM Refractory N/V 03/14/19 19:30 04/13/19 19:29 Quetiapine Fumarate (SEROquel) 50 mg DAILY ORAL 03/15/19 09:00 04/14/19 08:59 03/15/19 08:25 Temazepam (Restoril) 15 mg HSPRN PRN ORAL Insomnia 03/14/19 19:30 03/21/19 19:29 Thiamine HCl 100 mg/Dextrose 56 ml @ 112 mls/hr Q24H IVPB 03/15/19 14:00 04/14/19 13:59 GI: Plan Problems: (1) Upper GI bleed (2) Hematemesis (3) Acute pancreatitis Plan This is a 39-year-old male patient with history of EtOH abuse, chronic pancreatitis presents today with complaint of reported hematemesis and abdominal pain. Pancreatitis Upper GI bleed Concepcion-Condon tear Gastric versus duodenal ulcer EtOH abuse We will send for occult blood stool to rule out any GI bleed, will consider endoscopy if positive The patient's lipase is within normal limits at time of evaluation, will give a trial of clear liquid diet and advance as tolerated Monitor H&H, PRN transfusions PPI Zofran as needed Pain management Ativan as needed IV p.o. hydration We will follow along with any additional recommendations Discussed with Dr. Brown. Thank you for this patient referral, we will follow. The patient was seen and examined at bedside and all new and available data was reviewed in the patients chart. I agree with the above findings, impression and plan. (Patient seen earlier today. Signature stamp does not reflect patient encounter time.). - MD Levon Duckworthuyen,[facility] [employer] Mar 15, 2019 13:12
--- NOTE | 2019-03-15 13:50 | NUR ---
HAND-OFF: Report given to LUIGI Hooker Patient resting comfortably in bed, no sign of distress luigi Henry.
[2019-03-15] MEDS ORDERED: Folic Acid 1 MG, Magnesium Sulfate 2,000 MG, Multivitamin - 12 Injection 10 ML in Sodiu... IV SCH (14:00)
[2019-03-15] MEDS ORDERED: Thiamine 100mg in D5W 55ml IVPB SCH (14:00)
--- NOTE | 2019-03-15 18:07 | History & Physical ---
History and Physical History & Physicial Brady Arciniega MD Mar 15, 2019 18:07
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
--- NOTE | 2019-03-15 19:26 | NUR ---
NURSE NOTES: Received pt from SEE MEDELLIN. Pt ia alert and orient x4. pt is in RA, No SOB or acute respiratory distress noted. Dr DURAN visited pt, no new order to RN. Pt has intact iv access RFA 20G is running well. pt is very anxious and in pain, Dr DURAN IS AWARE. report given to KINDRA MEYERS.
--- NOTE | 2019-03-15 20:00 | NUR ---
nurse's notes: received patient awake, alert, oriented x 4, c/o of severe 9/10 generalized pain and severe anxiety; patient is restless and requesting pain and anxiety meds to be given around the clock; education given on these medications including side effects and possible adverse reactions; education understood; per patient has high tolerance to narcotics. plan of care also reviewed and discussed with patient. will continue to monitor.
[2019-03-15] MEDS ORDERED: Naloxone 1mg/ml 2ml ONE (23:08)
[2019-03-15] MEDS ORDERED: D5 1/2NS 1,000 ML IV SCH (23:15)
--- NOTE | 2019-03-15 23:16 | NUR ---
NURSE'S NOTES: HOURLY ROUNDING DONE; FOUND PATIENT SEEMINGLY ASLEEP; EASILY AROUSABLE BUT VERBALIZED THAT HE "DIDNT FEEL GOOD"; PATIENT WAS SHIVERING BUT DOES NOT FEEL COLD; WAS CONFUSED; UNAWARE OF HIS CURRENT WHREABOUTS; VS TAKEN; HR 120-154; BP 133/86; O2 SATS WAS 98%; RESPIRATIONS ABOUT 22 BPM; HOTEL DINING ROOM CASHIER CALLED AT 2252; EVI LAW CLERK ARRIVED ON THE FLOOR AT 2254 AND RT TONG SHORTLY THEREAFTER; PATIENT WAS THEN ATTACHED TO THE MONITOR; BRIEF SBAR GIVEN TO LAW CLERK EVI INCLUDING MEDS GIVEN DURING THE LAST 6 HOURS; BS CHECKED AT 78; D50 GIVEN; NARCAN ALSO GIVEN; SUPPLEMENTAL OXYGEN INITIATED VIA NASAL CANNULA AT 2L/MIN; EKG DONE WHICH SHOWS SINUS TACHY AT 141BPM. DR. DURAN CALLED 2312; AGAIN SBAR GIVEN ON THE CURRENT SITUATION; ORDERS TO TRANSFER TO TELE AND START ON D5 1/2 NS AT 125 CC/HR.; INFORMED HOTEL DINING ROOM CASHIER LUIGI STEVE OF NEW ORDERS; HR RATE AT THIS TIME IS NOW AT 98 BPM; PATIENT CALM, NO SHIVERING; EYES CLOSED; RESTING; PATIENT REMAINED AWAKE DURING THE HOTEL DINING ROOM CASHIER; BIAS BINDING CUTTER GLYNN AND STOVE BOTTOM WORKERLUIGI DUNCAN ALSO IN THE ROOM TO ASSIST IN THE HOTEL DINING ROOM CASHIER.; AWAITING TELE ROOM.
[2019-03-16] VITALS (9 sets, daily range): BP systolic 113–140; BP diastolic 71–100
--- NOTE | 2019-03-16 | NUR ---
NURSE NOTES: Received patient from Malorie RN. Patient transferred from 3rd floor. Patient is awake, alert and responsive. Does not remember what happened or why he is being transferred. Oriented patient to the unit. Bed in low position, locked, call light within reach.
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
--- NOTE | 2019-03-16 00:40 | NUR ---
NURSE NOTES: Patient c/o abd pain, 10/10, sharp. Dilauded 2mg IVP given. Patient is still responsive, alert.
--- NOTE | 2019-03-16 01:00 | NUR ---
NURSE NOTES: 20 gauge iv started on right hand, restarted D51/2NS at 125ml/hr.
--- NOTE | 2019-03-16 02:00 | NUR ---
NURSE NOTES: Patient tolerating dilauded well, Vitals within normal limits. Awake, alert and oriented x3.
[2019-03-16] MEDS ORDERED: Nitroglycerin Subl 0.4mg tab SL PRN (03:15)
[2019-03-16] MEDS ORDERED: chlordiazePOXIDE 25mg Cap ORAL PRN (03:24)
[2019-03-16] MEDS: D5 1/2NS 1,000 ML IV SCH ×3 (04:00→20:00)
[2019-03-16] MEDS: LORazepam Inj 2mg/ml 1ml IV PRN ×2 (04:36→22:35)
[2019-03-16] MEDS ORDERED: Metoclopramide 10mg/2ml Inj IVP PRN (06:00)
--- NOTE | 2019-03-16 07:00 | NUR ---
NURSE NOTES: Restarted PIV on right posterior forearm and right hand. D51/2 NS infusing at 125ml/hr. Dilauded 2mg IVP given for pain. Patient awake and responsive, guarding, tossing around in bed.
--- NOTE | 2019-03-16 07:30 | NUR ---
Rapid Response sheet was submitted to Nilesh in Pharmacy this AM - with record of Narcan pulled from crash cart and D50 pulled from pyxis during the patient's rapid response.
--- NOTE | 2019-03-16 07:30 | NUR ---
HAND-OFF: Report given to Dolly MEYERS. Plan of care endorsed.
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
[2019-03-16] MEDS: PARoxetine 20mg tab ORAL SCH (08:36)
[2019-03-16] MEDS: Heparin 5000 units/ml inj SUBQ SCH ×2 (08:38→20:21)
[2019-03-16] MEDS: Pantoprazole Inj IV SCH (08:39)
[2019-03-16 08:43] LABS: BASOPHILS % (AUTO) 0.6 % (0.0-2.0); EOSINOPHILS % (AUTO) 4.1 % (0.0-3.0); HEMATOCRIT 39.8 % (42.0-52.0); HEMOGLOBIN 13.1 G/DL (14.2-18.0); LYMPHOCYTES % (AUTO) 20.3 % (20.0-45.0); MEAN CORPUSCULAR VOLUME 78 FL (80-99); MONOCYTES % (AUTO) 9.2 % (1.0-10.0); NEUTROPHILS % (AUTO) 65.8 % (45.0-75.0); PLATELET COUNT 258 K/UL (150-450); RED BLOOD COUNT 5.08 M/UL (4.70-6.10); RED CELL DISTRIBUTION WIDTH 13.4 % (11.6-14.8); WHITE BLOOD COUNT 6.9 K/UL (4.8-10.8)
[2019-03-16 08:51] LABS: ALANINE AMINOTRANSFERASE 60 U/L (12-78); ALBUMIN 3.9 G/DL (3.4-5.0); ALBUMIN/GLOBULIN RATIO 1.2 (1.0-2.7); ALKALINE PHOSPHATASE 92 U/L (46-116); AMYLASE 58 U/L (25-115); ANION GAP 8 mmol/L (5-15); ASPARTATE AMINO TRANSFERASE 27 U/L (15-37); BILIRUBIN,TOTAL 0.5 MG/DL (0.2-1.0); BLOOD UREA NITROGEN 4 mg/dL (7-18); CALCIUM 8.5 MG/DL (8.5-10.1); CARBON DIOXIDE 28 MMOL/L (21-32); CHLORIDE 105 MMOL/L (98-107); CREATININE 0.7 MG/DL (0.55-1.30); PHOSPHORUS 3.7 MG/DL (2.5-4.9); POTASSIUM 3.4 MMOL/L (3.5-5.1); SODIUM 141 MMOL/L (136-145)
--- NOTE | 2019-03-16 12:23 | NUR ---
NURSE NOTES: Patient transferred to room 321.2. Patient alert and oriented x4. Patient oriented to the room, bed in the lowest position and call light within reach. Patient in possession of all his belongings listed on his belonging sheet.
--- NOTE | 2019-03-16 12:36 | NUR ---
NURSE NOTES: received patient A/A/Ox4, appeared drowsy and tired. patient is naked on the top. Only on his boxers. offered a hosp gown and refused. Though, verbally responsive. IV access patent and intact. IVF infusing well. Patient appeared to be stubborn with his medication and kept asking for his pain medication. Had explained the indications and side effects and insisted that he is in pain had explained to him as well last time it was administered to him. V/S taken and recorded. afebrile. Instructed to call for assistance whenever he needs to get out of bed. call light is within reach. bed is in the lowest position. siderails are up x3. will cont to monitor.
--- NOTE | 2019-03-16 12:52 | NUR ---
NURSE NOTES: Informed Dr. Hutchinson for K+3.4. awaits for call back. will cont to monitor. Addendum: 03/16/19 at 1421 by JAME MORRISSEY LVN new order obtained.
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
--- NOTE | 2019-03-16 14:54 | NUR ---
NURSE NOTES: patient ambulating with steady gait.
--- NOTE | 2019-03-16 14:55 | NUR ---
HAND-OFF: Report given to
[2019-03-16] MEDS: Thiamine HCl 100 MG in D5W 55 ML IVPB SCH (15:11)
[2019-03-16] MEDS: Folic Acid 1 MG, Magnesium Sulfate 2,000 MG, Multivitamin - 12 Injection 10 ML in Sodiu... IV SCH (15:11)
--- NOTE | 2019-03-16 19:05 | NUR ---
HAND-OFF: Report given to Erika RN, pt in stable condition. - Incoming nurse aware that OB needs to be collected. Awaiting for sample.
--- NOTE | 2019-03-16 21:00 | General Progress Note ---
Assessment/Plan Assessment/Plan: Assessment - abd pain - possible EtOH pancreatiis - hematemesis - N/V Recommendation - symptomatic care - check OB - follow labs and exam - consider EGD Subjective Allergies: Coded Allergies: ACETAMINOPHEN (Verified Allergy, Unknown, Rash, 02/16/19) HYDROCODONE (Verified Allergy, Unknown, Rash, 02/16/19) Subjective Seen with a friend in room c/o abd pain on clears states he vomited this am Objective Last 24 Hour Vital Signs Date Time Temp Pulse Resp B/P (MAP) Pulse Ox O2 Delivery O2 Flow Rate FiO2 03/16/19 20:00 98.1 98 21 131/76 (94) 96 03/16/19 18:06 97.3 03/16/19 16:00 97.3 105 21 135/89 (104) 96 03/16/19 15:43 98.3 03/16/19 12:29 98.3 112 21 120/83 (95) 93 03/16/19 12:00 98.4 106 19 119/82 (94) 92 03/16/19 10:00 109 113/77 (89) 03/16/19 09:00 Room Air 03/16/19 08:00 97.2 118 19 140/92 (108) 96 03/16/19 07:42 115 03/16/19 04:00 98.3 103 23 134/100 (111) 96 03/16/19 04:00 108 03/16/19 02:00 102 24 115/71 (86) 97 03/16/19 00:15 98.6 108 20 129/88 (102) 96 03/16/19 00:00 126 03/15/19 22:58 135 22 133/86 (102) 97 03/15/19 21:00 Room Air Intake and Output 03/15/19 03/16/19 18:59 06:59 Intake Total 1240 ml 740 ml Output Total 1400 ml Balance 1240 ml -660 ml Intake Oral 240 ml 240 ml IV Total 1000 ml 500 ml Output Urine Total 1400 ml # Voids 4 4 Laboratory Tests 03/16/19 07:12: White Blood Count 6.9, Red Blood Count 5.08, Hemoglobin 13.1L, Hematocrit 39.8L , Mean Corpuscular Volume 78L, Mean Corpuscular Hemoglobin 25.8L, Mean Corpuscular Hemoglobin Concent 33.0, Red Cell Distribution Width 13.4, Platelet Count 258, Mean Platelet Volume 6.7, Neutrophils (%) (Auto) 65.8, Lymphocytes (% ) (Auto) 20.3, Monocytes (%) (Auto) 9.2, Eosinophils (%) (Auto) 4.1H, Basophils (%) (Auto) 0.6, Erythrocyte Sedimentation Rate 8 03/16/19 07:45: Sodium Level 141, Potassium Level 3.4L, Chloride Level 105, Carbon Dioxide Level 28, Anion Gap 8, Blood Urea Nitrogen 4L, Creatinine 0.7, Estimat Glomerular Filtration Rate > 60, Glucose Level 83, Calcium Level 8.5, Phosphorus Level 3.7, Magnesium Level 2.2, Total Bilirubin 0.5, Aspartate Amino Transf (AST/SGOT) 27, Alanine Aminotransferase (ALT/SGPT) 60, Alkaline Phosphatase 92, C-Reactive Protein, Quantitative 1.6H, Total Protein 7.2, Albumin 3.9, Globulin 3.3, Albumin/Globulin Ratio 1.2, Amylase Level 58, Lipase 131 Height (Feet): 5 Height (Inches): 4.00 Weight (Pounds): 169 Objective WDWN WM NCAT supple CTA RRR Abd soft ND no edema non focal Zarina Storm MD Mar 16, 2019 21:00
[2019-03-17] VITALS (7 sets, daily range): BP systolic 123–150; BP diastolic 68–89
[2019-03-17] MEDS: D5 1/2NS 1,000 ML IV SCH ×2 (04:25→11:55)
[2019-03-17 05:14] LABS: BASOPHILS % (AUTO) 0.5 % (0.0-2.0); EOSINOPHILS % (AUTO) 4.6 % (0.0-3.0); HEMATOCRIT 38.3 % (42.0-52.0); HEMOGLOBIN 12.4 G/DL (14.2-18.0); LYMPHOCYTES % (AUTO) 18.9 % (20.0-45.0); MEAN CORPUSCULAR VOLUME 79 FL (80-99); MONOCYTES % (AUTO) 9.2 % (1.0-10.0); NEUTROPHILS % (AUTO) 66.7 % (45.0-75.0); PLATELET COUNT 248 K/UL (150-450); RED BLOOD COUNT 4.85 M/UL (4.70-6.10); RED CELL DISTRIBUTION WIDTH 13.6 % (11.6-14.8)
[2019-03-17 05:29] LABS: ALANINE AMINOTRANSFERASE 62 U/L (12-78); ALBUMIN 3.8 G/DL (3.4-5.0); ALBUMIN/GLOBULIN RATIO 1.2 (1.0-2.7); ALKALINE PHOSPHATASE 90 U/L (46-116); AMYLASE 49 U/L (25-115); ANION GAP 7 mmol/L (5-15); ASPARTATE AMINO TRANSFERASE 29 U/L (15-37); BILIRUBIN,TOTAL 0.5 MG/DL (0.2-1.0); BLOOD UREA NITROGEN 6 mg/dL (7-18); CALCIUM 8.6 MG/DL (8.5-10.1); CARBON DIOXIDE 29 MMOL/L (21-32); CHLORIDE 105 MMOL/L (98-107); CREATININE 0.9 MG/DL (0.55-1.30); PHOSPHORUS 3.1 MG/DL (2.5-4.9); POTASSIUM 3.8 MMOL/L (3.5-5.1); SODIUM 141 MMOL/L (136-145)
--- NOTE | 2019-03-17 07:25 | NUR ---
HAND-OFF: Report given to Winnie MEYERS.
--- NOTE | 2019-03-17 07:55 | NUR ---
NURSE NOTES:\ AWAKE/ALERT. PAIN SCALE 9/10. NO ACUTE DISTRESS.
--- NOTE | 2019-03-17 08:37 | NUR ---
NURSE NOTES: Patient requests for pain medication regarding the frequency and amount he gets, and when narcotics administered patient gets confused and gets lethargic, MD notified Dilaudid dose decreased to 2mg q4hr from 3mg q3hr. soma discontinued. RN also received a call from Shekhar from [facility] phone number [phone]. Shekhar Reported patient was on drug and alcohol rehab for the past 3 and half weeks and he was tapered down from drug use for more information MD can call him any time if more information required.
[2019-03-17] MEDS ORDERED: D5 1/2NS 1000ml IV ONE ×2 (08:55→15:45)
[2019-03-17] MEDS: Pantoprazole Inj IV SCH (09:03)
[2019-03-17] MEDS: PARoxetine 20mg tab ORAL SCH (09:03)
[2019-03-17] MEDS: Heparin 5000 units/ml inj SUBQ SCH ×2 (09:08→20:31)
[2019-03-17] MEDS: LORazepam Inj 2mg/ml 1ml IV PRN ×3 (10:11→21:35)
--- NOTE | 2019-03-17 13:17 | NUR ---
NURSE NOTES: Received a call from Ramonita Lomeli, social services manager for Mr. Garcia phone number [phone]. Ms. Lomeli stated "patient was on drug and alcohol rehab initiated by his job, if he stayed in the hospital and continue receiving pain medication that possible disqualify him from the program and will lose his job". the social services manager also requested to discuss the matter with the physician phone number given. Patient requested to eat regular food Dr. Brown notified with the current lab result order received.
[2019-03-17] MEDS: Folic Acid 1 MG, Magnesium Sulfate 2,000 MG, Multivitamin - 12 Injection 10 ML in Sodiu... IV SCH (14:16)
[2019-03-17] MEDS: Thiamine HCl 100 MG in D5W 55 ML IVPB SCH (14:22)
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
[2019-03-17] MEDS ORDERED: Tubing IV Secondary IV ONE (15:45)
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
--- NOTE | 2019-03-17 17:34 | NUR ---
NURSE NOTES: PT IN AND OUT AT THE [facility]ES [facility]. REQUESTING FOR SOMA. INSTRUCTED PT MED HAS BEEN DC'D. REQUESTING MD TO BE CALLED. DR Adelaida AHN CALLED LEFT MESSAGE TO RETURN CALL.
--- NOTE | 2019-03-17 18:32 | General Progress Note ---
Assessment/Plan Assessment/Plan: Assessment - abd pain - possible EtOH pancreatiis - hematemesis - N/V Recommendation - symptomatic care - check OB - follow labs and exam - taper off of narcotics Subjective Allergies: Coded Allergies: ACETAMINOPHEN (Verified Allergy, Unknown, Rash, 02/16/19) HYDROCODONE (Verified Allergy, Unknown, Rash, 02/16/19) Subjective c/o abd pain wants more pain meds tolerating PO Objective Last 24 Hour Vital Signs Date Time Temp Pulse Resp B/P (MAP) Pulse Ox O2 Delivery O2 Flow Rate FiO2 03/17/19 16:43 97.9 03/17/19 16:00 98.3 102 18 123/68 (86) 98 03/17/19 12:00 97.9 118 18 150/89 (109) 97 03/17/19 09:00 Room Air 03/17/19 08:00 98.4 110 20 136/84 (101) 91 03/17/19 07:50 98.4 03/17/19 04:00 98.4 104 20 144/72 (96) 96 03/17/19 00:00 98.3 105 21 137/78 (97) 96 03/16/19 21:00 Room Air 03/16/19 20:00 98.1 98 21 131/76 (94) 96 Intake and Output 03/16/19 03/17/19 19:00 07:00 Intake Total 825 ml 1790 ml Balance 825 ml 1790 ml Intake Oral 450 ml 240 ml IV Total 375 ml 1250 ml Other 300 ml # Voids 6 Laboratory Tests 03/17/19 04:30: White Blood Count 7.0, Red Blood Count 4.85, Hemoglobin 12.4L, Hematocrit 38.3L , Mean Corpuscular Volume 79L, Mean Corpuscular Hemoglobin 25.7L, Mean Corpuscular Hemoglobin Concent 32.5, Red Cell Distribution Width 13.6, Platelet Count 248, Mean Platelet Volume 6.9, Neutrophils (%) (Auto) 66.7, Lymphocytes (% ) (Auto) 18.9L, Monocytes (%) (Auto) 9.2, Eosinophils (%) (Auto) 4.6H, Basophils (%) (Auto) 0.5, Erythrocyte Sedimentation Rate 20H, Sodium Level 141, Potassium Level 3.8, Chloride Level 105, Carbon Dioxide Level 29, Anion Gap 7, Blood Urea Nitrogen 6L, Creatinine 0.9, Estimat Glomerular Filtration Rate > 60 , Glucose Level 85, Calcium Level 8.6, Phosphorus Level 3.1, Magnesium Level 2.3 , Total Bilirubin 0.5, Aspartate Amino Transf (AST/SGOT) 29, Alanine Aminotransferase (ALT/SGPT) 62, Alkaline Phosphatase 90, C-Reactive Protein, Quantitative 3.2H, Total Protein 6.9, Albumin 3.8, Globulin 3.1, Albumin/ Globulin Ratio 1.2, Amylase Level 49, Lipase 91 Height (Feet): 5 Height (Inches): 4.00 Weight (Pounds): 169 Objective WDWN WM NCAT supple CTA RRR Abd soft ND no edema non focal Zarina Storm MD Mar 17, 2019 18:32
--- NOTE | 2019-03-17 18:56 | NUR ---
NURSE NOTES: CONSTANTLY WITH PAIN. SCALE 8-9/10. MEDICATED FOR PAIN ORDERED. CONTINUED TO MONITOR PT.
--- NOTE | 2019-03-17 19:30 | NUR ---
NURSE NOTES: Received report from LUIGI Zhou. Patient is walking in hallways c/o of sharp abdominal pain /. RN informed patient that pain meds are not due yet and will be given per eMAR order. Provided patient with food and juice as asked. Skin is intact. No c/o SOB on room air. Right forearm IV intact. Call light within reach.
--- NOTE | 2019-03-17 19:32 | NUR ---
HAND-OFF: Report given to Blue BERKOWITZ RN.
--- NOTE | 2019-03-17 21:35 | NUR ---
NURSE NOTES: Patient is very agitated pacing the hallways with elevated heart rate. Given Ativan per eMAR order.
[2019-03-18] VITALS: BP 133/97
[2019-03-18] MEDS: D5 1/2NS 1,000 ML IV SCH ×2 (01:48→06:19)
[2019-03-18 04:00] VITALS: BP 142/103
[2019-03-18] MEDS: LORazepam Inj 2mg/ml 1ml IV PRN (05:51)
--- NOTE | 2019-03-18 07:23 | NUR ---
HAND-OFF: Report given to Rissa Orona RN. Patient in stable condition.
--- NOTE | 2019-03-18 07:30 | NUR ---
NURSE NOTES: Patient is in bed awake and able to verbalize needs. Stable. Complains of severe pain and is asking for pain medication. Patient is aware of pain medication administration schedule and knows that pain medicine is not due yet and it is unsafe for RN to administer pain medication early before it is due. Patient is noncooperative with pain medication administration schedule and continues to ask for pain medication. Patient is aware of side effects of medications and does not agree with RN about dangers of overdosing on pain medication. Patient is noncompliant and upset. Will continue to reinforce teaching. Patient is in bed in locked and lowest position with call light within reach. All safety measures provided. WIll continue to monitor.
[2019-03-18 07:58] LABS: BASOPHILS % (AUTO) 1.8 % (0.0-2.0); EOSINOPHILS % (AUTO) 7.5 % (0.0-3.0); HEMATOCRIT 38.6 % (42.0-52.0); HEMOGLOBIN 12.6 G/DL (14.2-18.0); LYMPHOCYTES % (AUTO) 25.4 % (20.0-45.0); MEAN CORPUSCULAR VOLUME 79 FL (80-99); MONOCYTES % (AUTO) 11.5 % (1.0-10.0); NEUTROPHILS % (AUTO) 53.8 % (45.0-75.0); PLATELET COUNT 241 K/UL (150-450); RED BLOOD COUNT 4.89 M/UL (4.70-6.10); WHITE BLOOD COUNT 4.5 K/UL (4.8-10.8)
[2019-03-18 08:00] VITALS: BP 140/97
[2019-03-18 08:20] LABS: ANION GAP 6 mmol/L (5-15); BLOOD UREA NITROGEN 7 mg/dL (7-18); CARBON DIOXIDE 30 MMOL/L (21-32); CHLORIDE 104 MMOL/L (98-107); CREATININE 0.8 MG/DL (0.55-1.30); POTASSIUM 3.8 MMOL/L (3.5-5.1); SODIUM 140 MMOL/L (136-145)
[2019-03-18] MEDS: PARoxetine 20mg tab ORAL SCH (09:12)
[2019-03-18] MEDS: Pantoprazole Inj IV SCH (09:12)
[2019-03-18] MEDS: Heparin 5000 units/ml inj SUBQ SCH (09:15)
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
--- NOTE | 2019-03-18 11:20 | NUR ---
NURSE NOTES: Patient discharged home as ordered. Stable. Denies pain or SOB. Patient has all belongings. Patient was given thorough discharge instructions by RN, patient verbalized understanding. Patient followed along written discharge instructions and signed paperwork. patient called and notified her of d/c. Patient did not want RN to notify next of kin. Patient reminded to follow up with primary MD. No IV access. Patient assisted outside by RN without incident.
--- NOTE | 2019-03-18 11:34 | NUR ---
*-* INSURANCE *-* ALL AVAILABLE CLINICALS AND REVIEWS HAVE BEEN FAXED TO: MAILE CRUZ:JASON F: [phone] REF# [id number]
--- NOTE | 2019-03-18 14:37 | General Progress Note ---
Assessment/Plan Assessment/Plan: Progress Note date and time: 03/17/19 1832 Assessment/Plan Assessment/Plan: Assessment - abd pain - possible EtOH pancreatiis - hematemesis - N/V Recommendation - symptomatic care - check OB - follow labs and exam - taper off of narcotics Subjective ROS Limited/Unobtainable: Yes Allergies: Coded Allergies: ACETAMINOPHEN (Verified Allergy, Unknown, Rash, 02/16/19) HYDROCODONE (Verified Allergy, Unknown, Rash, 02/16/19) Objective Last 24 Hour Vital Signs Date Time Temp Pulse Resp B/P (MAP) Pulse Ox O2 Delivery O2 Flow Rate FiO2 03/18/19 09:00 Room Air 03/18/19 08:00 98.5 99 18 140/97 (111) 95 03/18/19 04:00 98.2 91 20 142/103 (116) 97 03/18/19 00:00 98.2 99 18 133/97 (109) 95 03/17/19 21:00 Room Air 03/17/19 20:14 98.8 103 20 135/88 (104) 95 03/17/19 20:00 98.8 103 20 135/88 (104) 95 03/17/19 19:02 97.9 03/17/19 16:43 97.9 03/17/19 16:00 98.3 102 18 123/68 (86) 98 Intake and Output 03/17/19 03/18/19 19:00 07:00 Intake Total 3230 ml 1490 ml Balance 3230 ml 1490 ml Intake Oral 750 ml 240 ml IV Total 2480 ml 1250 ml # Voids 3 2 Laboratory Tests 03/18/19 07:31: White Blood Count 4.5L, Red Blood Count 4.89, Hemoglobin 12.6L, Hematocrit 38.6L , Mean Corpuscular Volume 79L, Mean Corpuscular Hemoglobin 25.7L, Mean Corpuscular Hemoglobin Concent 32.5, Red Cell Distribution Width 12.0, Platelet Count 241, Mean Platelet Volume 6.3L, Neutrophils (%) (Auto) 53.8, Lymphocytes ( %) (Auto) 25.4, Monocytes (%) (Auto) 11.5H, Eosinophils (%) (Auto) 7.5H, Basophils (%) (Auto) 1.8, Sodium Level 140, Potassium Level 3.8, Chloride Level 104, Carbon Dioxide Level 30, Anion Gap 6, Blood Urea Nitrogen 7, Creatinine 0.8 , Estimat Glomerular Filtration Rate > 60, Glucose Level 112H, Calcium Level 9.0 Height (Feet): 5 Height (Inches): 4.00 Weight (Pounds): 169 General Appearance: alert EENT: normal ENT inspection Neck: supple Cardiovascular: normal rate Respiratory/Chest: decreased breath sounds Abdomen: normal bowel sounds, non tender, soft Extremities: non-tender Moreon Brown MD Mar 18, 2019 14:37
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
--- NOTE | 2019-03-20 10:58 | NUR ---
*-* INSURANCE *-* DISCHARGE SUMMARY HAS BEEN FAXED TO: MAILE CRUZ:JASON F: [phone] REF# [id number]
== END 2019-03-18 11:22 | disposition home or self-care (01) | DRG 439 ==
LOC: EMR 14:51 → 3E 17:10 → EDBEDREQ 18:25 → 3E 03-15 20:01 → 2E 03-16 00:01 → 3E 03-16 12:22
DX: K85.20 Alcohol induced acute pancreatitis without necrosis or infection (principal); K92.0 Hematemesis; F10.20 Alcohol dependence, uncomplicated; E86.0 Dehydration; Z88.6 Allergy status to analgesic agent; Z90.49 Acquired absence of other specified parts of digestive tract; I10 Essential (primary) hypertension; K29.70 Gastritis, unspecified, without bleeding; K21.9 Gastro-esophageal reflux disease without esophagitis
CPT/HCPCS: 36415; 76700; 80048; 80053; 80307; 81003; 82150; 82962; 83690; 83735; 84100; 85025; 85651; 85730; 86140; 96361; 96374; 96375; 99285; G0480; J2310; J2405; J2765; J7030; J8499